=== PATIENT | male | born 1940 | race Caucasian/White ===

== ENCOUNTER 2018-01-23 09:31 | Inpatient (IN) ==
[2018-01-25] MEDS ORDERED: Aluminum/Magnesium/Simethacone Susp 30 ML UDC PO PRN (00:01)
[2018-01-25] MEDS ORDERED: Bisacodyl 10 MG Supp RECTAL PRN (00:01)
[2018-01-25] MEDS ORDERED: Potassium Chlor 20 mEq Premix 20 MEQ/100 ML PIGGYBACK IV.SIG PRN (00:01)
[2018-01-25] MEDS ORDERED: Morphine Inj 4 MG/ML Vial IV.PUSH PRN (00:01)
[2018-01-25] MEDS ORDERED: Menthol 5.8 MG Lozenge BUCCAL PRN (00:01)
[2018-01-25] MEDS ORDERED: Calcium Gluconate Inj 1 GM in Sodium Chlor 0.9% Inj 100 ML IV.SIG PRN (00:01)
[2018-01-25] MEDS ORDERED: Acetaminophen 325 MG Tablet PO PRN (00:01)
[2018-01-25] MEDS ORDERED: Zolpidem Tartrate 5 MG Tablet PO PRN (00:01)
[2018-01-25] MEDS ORDERED: Magnesium Sulfate Inj 2 GM in Sodium Chlor 0.9% Inj 100 ML IV.SIG PRN (00:01)
[2018-01-25] MEDS: Folic Acid 1 MG Tablet PO SCH (09:08)
[2018-01-25] MEDS: Citalopram 20 MG Tablet PO SCH (09:08)
[2018-01-25] MEDS: Loratadine 10 MG Tablet PO SCH (09:09)
[2018-01-25] MEDS: Senna/Docusate Sodium 8.6/50 MG Tablet PO SCH ×2 (09:09→21:46)
[2018-01-25] MEDS: Vitamins A,C,E/Lutein/Minerals Tablet PO SCH (09:09)
[2018-01-25] MEDS: amLODIPine 5 MG Tablet PO SCH (21:46)
--- NOTE | 2018-01-25 22:13 | P.PNNS ---
Subjective Interval history: 01/23/2018 lumbar laminectomy and fusion. 01/25/2018: Initial difficulty with urinary retention, over 300 cc on bladder scan earlier this morning. Patient straight cath and started on Pyridium and Flomax. Now with improved urine output, mild incontinence. Physical Exam Vital signs: Vital Signs 01/25/18 04:00 01/25/18 04:56 01/25/18 08:00 Temperature 97.8 F 98.9 F Pulse Rate 79 70 Respiratory Rate 18 18 20 Blood Pressure 155/71 H 144/66 H Pulse Oximetry 96 94 L 01/25/18 09:09 01/25/18 10:00 01/25/18 12:00 Temperature 98.0 F Pulse Rate 71 Respiratory Rate 18 18 18 Blood Pressure 170/78 H Pulse Oximetry 01/25/18 13:56 01/25/18 15:00 01/25/18 16:00 Temperature 98.3 F Pulse Rate 61 Respiratory Rate 18 16 18 Blood Pressure 114/58 L Pulse Oximetry 93 L 01/25/18 18:56 01/25/18 19:07 01/25/18 20:01 Temperature 97.8 F Pulse Rate 57 L Respiratory Rate 18 18 16 Blood Pressure 144/68 H Pulse Oximetry 96 Intake & Output 01/25/18 01/25/18 01/26/18 06:59 18:59 06:59 Intake Total 360 / 360 480 / 480 Output Total 525 / 525 200 / 200 150 / 150 Balance -165 / -165 280 / 280 -150 / -150 Weight 77.6 kg Intake: Oral 360 / 360 480 / 480 Output: Urine 200 / 200 150 / 150 Urine/Stool Mix 0 / 0 Urine Amount (Catheter) 525 / 525 Straight 525 / 525 Other: # Voids 0 Date of Last Bowel Movement 02/21/18 Narrative: Patient sitting up in bed. Has a urinal that he is using as needed. He is awake and alert Speech is clear Conversant and appropriate Dressing dry and intact lumbar region Sensation intact light touch lower extremities Good lower extremity strength No pelvic-saddle anesthesia. No lower extremity spasticity Plantar responses are neutral No ankle clonus Swanson's response absent bilateral Sensorimotor intact upper extremities - Urinary Catheter Management Straight Cath placed during this visit: no Assessment and Plan - Assessment (1) Lumbar stenosis with neurogenic claudication Code(s): M48.062 - Spinal stenosis, lumbar region with neurogenic claudication Status: Acute - Plan Discussed with patient Discussed with nursing staff Continuing Flomax and Pyridium He does not have any definite signs of cauda equina syndrome. Sensorimotor function otherwise intact in the lower extremities with no saddle anesthesia. Gives a history of prior prostate problems. Continue present medications and observation of bladder function. Replace Sarabia if needed. Discussed with nursing staff. Further bladder scan as needed
[2018-01-26] MEDS: Senna/Docusate Sodium 8.6/50 MG Tablet PO SCH ×2 (09:22→22:02)
[2018-01-26] MEDS: Loratadine 10 MG Tablet PO SCH (09:22)
[2018-01-26] MEDS: Citalopram 20 MG Tablet PO SCH (09:22)
[2018-01-26] MEDS: Vitamins A,C,E/Lutein/Minerals Tablet PO SCH (09:22)
[2018-01-26] MEDS: Folic Acid 1 MG Tablet PO SCH (09:23)
--- NOTE | 2018-01-26 11:10 | P.PNNS ---
Subjective Interval history: Pt complains of incisional back pain and left more than right anterior thigh pain not past the knee. He has been limited in his ambulatory status over the weekend. Pt is interested in rehab placement given his limitations and his would not be able to help much. He denies paresthesias in the LEs. <[email or web address] dia - Last Filed: 01/26/18 10:54> Physical Exam Vital signs: Vital Signs 01/25/18 12:00 01/25/18 13:56 01/25/18 15:00 Temperature 98.0 F Pulse Rate 71 Respiratory Rate 18 18 16 Blood Pressure 170/78 H Pulse Oximetry 01/25/18 16:00 01/25/18 18:56 01/25/18 19:07 Temperature 98.3 F 97.8 F Pulse Rate 61 57 L Respiratory Rate 18 18 18 Blood Pressure 114/58 L 144/68 H Pulse Oximetry 93 L 96 01/25/18 20:01 01/25/18 23:42 01/26/18 00:30 Temperature 98.0 F Pulse Rate 81 Respiratory Rate 16 18 Blood Pressure 188/83 H 148/74 H Pulse Oximetry 93 L 01/26/18 04:38 Temperature 98.7 F Pulse Rate 72 Respiratory Rate 18 Blood Pressure 167/75 H Pulse Oximetry 92 L Intake & Output 01/25/18 01/26/18 01/26/18 18:59 06:59 18:59 Intake Total 480 / 480 1480 / 1480 Output Total 200 / 200 1000 / 1000 Balance 280 / 280 480 / 480 Weight 77.6 kg Intake: IV 1000 / 1000 NS + KCl 20 mEq Inj 1,000 ML @ 1000 / 1000 100 mls/hr IV.CONT .Q10H IVORY Rx #:[id number] Oral 480 / 480 480 / 480 Output: Urine 200 / 200 1000 / 1000 Other: Date of Last Bowel Movement 02/21/18 01/23/18 # Bowel Movements 0 - Constitutional no acute distress - Routine HEENT Exam Head: Present: normocephalic, atraumatic Eye: Present: PERRL. Absent: conjunctival icterus, scleral injection - Routine Respiratory Exam Present: CTA bilaterally. Absent: rales, respiratory distress, rhonchi, wheezes - Routine Cardiovascular Exam Present: RRR, S1, S2. Absent: murmur - Routine Abdominal Exam Present: soft, normoactive bowel sounds. Absent: tenderness, distended, firm - Routine Extremities Exam Absent: cyanosis, edema - Routine Skin Exam Present: intact. Absent: cyanosis, erythema (RN changed bandage this morning and was clean and intact.) - Routine Neurological Exam Present: alert, oriented X3, moving all extremities (with generalized weakness) , normal speech. Absent: sensory deficit, motor deficit - Detailed Neurological Exam: Coma Scale Eye Opening: Spontaneous Verbal Response: Oriented Motor Response: Obey commands [place] Coma Scale Total: 15 - Routine Psychiatric Exam Present: normal thought process, cooperative, good insight, good judgment - Urinary Catheter Management Straight Cath placed during this visit: no <Jf Briones - Last Filed: 01/26/18 10:54> Vital signs: Vital Signs 01/25/18 18:56 01/25/18 19:07 01/25/18 20:01 Temperature 97.8 F Pulse Rate 57 L Respiratory Rate 18 18 16 Blood Pressure 144/68 H Pulse Oximetry 96 01/25/18 23:42 01/26/18 00:30 01/26/18 04:38 Temperature 98.0 F 98.7 F Pulse Rate 81 72 Respiratory Rate 18 18 Blood Pressure 188/83 H 148/74 H 167/75 H Pulse Oximetry 93 L 92 L 01/26/18 08:00 01/26/18 12:00 01/26/18 16:00 Temperature 98.2 F 97.8 F 99.5 F Pulse Rate 61 60 73 Respiratory Rate 18 16 17 Blood Pressure 169/77 H 99/54 L 124/59 L Pulse Oximetry 92 L 94 L 95 Intake & Output 01/25/18 01/26/18 01/26/18 18:59 06:59 18:59 Intake Total 480 / 480 1480 / 1480 Output Total 200 / 200 1000 / 1000 Balance 280 / 280 480 / 480 Weight 77.6 kg Intake: IV 1000 / 1000 NS + KCl 20 mEq Inj 1,000 ML @ 1000 / 1000 100 mls/hr IV.CONT .Q10H IVORY Rx #:[id number] Oral 480 / 480 480 / 480 Output: Urine 200 / 200 1000 / 1000 Other: Date of Last Bowel Movement 02/21/18 01/23/18 01/24/18 # Bowel Movements 0 - Urinary Catheter Management Straight Cath placed during this visit: no <Ricardo Kauffman - Last Filed: 01/26/18 18:44> Assessment and Plan - Assessment (1) Degeneration of lumbar intervertebral disc Code(s): M51.36 - Other intervertebral disc degeneration, lumbar region Status : Acute (2) Lumbar stenosis with neurogenic claudication Code(s): M48.062 - Spinal stenosis, lumbar region with neurogenic claudication Status: Acute - Plan Continue with pain control Physical therapy to increase gain and LE strength Pt will require rehab given his weakness and decreased ambulatory status. Discussed with RN and case management. Discharge Planning: Rehab placement. <Jf Briones - Last Filed: 01/26/18 10:54> - Attending Attestation The exam, history, and the medical decision-making described in the above note were completed with the assistance of the mid-level provider. I reviewed and agree with the findings presented. I attest that I had a [id number] encounter with the patient on the same day, and personally performed and documented my assessment and findings in the medical record. <Ricardo Kauffman - Last Filed: 01/26/18 18:44>
[2018-01-26] MEDS: amLODIPine 5 MG Tablet PO SCH (22:02)
[2018-01-27] MEDS: Senna/Docusate Sodium 8.6/50 MG Tablet PO SCH (08:45)
[2018-01-27] MEDS: Folic Acid 1 MG Tablet PO SCH (08:46)
[2018-01-27] MEDS: Loratadine 10 MG Tablet PO SCH (08:46)
[2018-01-27] MEDS: Vitamins A,C,E/Lutein/Minerals Tablet PO SCH (08:46)
[2018-01-27] MEDS: Citalopram 20 MG Tablet PO SCH (08:46)
--- NOTE | 2018-01-27 09:50 | P.PNNS ---
Subjective Interval history: 01/27/18: Pt awake and alert. Sitting up in chair. He states pain improving. No radiculopathy or paresthesias in LEs. He states he wants to go to a SNF closer to home rather than acute rehab. Discussed with case management who will work on discharge to SNF. I discussed with pts who wants the pt to go to rehab. Pt is having some confusion and feels he will do better in rehab setting. Physical Exam Vital signs: Vital Signs 01/26/18 12:00 01/26/18 16:00 01/26/18 20:00 Temperature 97.8 F 99.5 F 99.4 F Pulse Rate 60 73 64 Respiratory Rate 16 17 20 Blood Pressure 99/54 L 124/59 L 147/66 H Pulse Oximetry 94 L 95 92 L 01/27/18 00:00 01/27/18 03:29 Temperature 99.4 F 98.5 F Pulse Rate 78 80 Respiratory Rate 19 19 Blood Pressure 164/72 H 152/65 H Pulse Oximetry 91 L 93 L Intake & Output 01/26/18 01/27/18 01/27/18 18:59 06:59 18:59 Intake Total 960 / 960 650 / 650 Output Total 1125 / 1125 900 / 900 Balance -165 / -165 -250 / -250 Weight 77.6 kg Intake: Oral 960 / 960 650 / 650 Output: Urine 1125 / 1125 900 / 900 Other: Date of Last Bowel Movement 01/24/18 01/26/18 # Bowel Movements 3 - Constitutional no acute distress, thin, cooperative - Routine HEENT Exam Head: Present: normocephalic, atraumatic Eye: Present: PERRL. Absent: conjunctival icterus - Routine Respiratory Exam Present: CTA bilaterally. Absent: respiratory distress, rhonchi, wheezes - Routine Cardiovascular Exam Present: RRR, S1, S2, murmur - Routine Abdominal Exam Present: soft, normoactive bowel sounds. Absent: tenderness, distended - Routine Skin Exam Present: intact. Absent: cyanosis, erythema - Routine Neurological Exam Present: alert, oriented X3, moving all extremities, normal speech. Absent: sensory deficit, motor deficit - Detailed Neurological Exam: Coma Scale Eye Opening: Spontaneous Verbal Response: Oriented Motor Response: Obey commands [place] Coma Scale Total: 15 - Routine Psychiatric Exam Present: normal affect, normal thought process, good judgment - Urinary Catheter Management Straight Cath placed during this visit: no Assessment and Plan - Assessment (1) Degeneration of lumbar intervertebral disc Code(s): M51.36 - Other intervertebral disc degeneration, lumbar region Status : Acute (2) Lumbar stenosis with neurogenic claudication Code(s): M48.062 - Spinal stenosis, lumbar region with neurogenic claudication Status: Acute - Plan Continue with pain control Physical therapy to increase gain and LE strength Pt will require rehab given his weakness and decreased ambulatory status. Discussed with case management we will discharge to rehab today if bed available. Discharge Planning: Rehab placement.
--- NOTE | 2018-03-01 14:56 | P.DS ---
Date of admission: 01/23/18 09:31 Primary care physician: SKIP FAULKNER Attending physician on discharge: Ricardo Kauffman Anticipated date of discharge: 01/27/18 Brief History from admission: This is a 77-year-old male who presented to us for an evaluation of low back pain and December 2016. He states that the pain occurs at night and keeps him awake. He said if he walks too much he gets twinges in his upper buttock area. He complains of burning in his feet at night with tingling but no numbness. He states if he walks too far his legs get tired. He states he cannot lie on his right side at night secondary to the hip pain. He states that he now has both sides bothering him. He states the pain does extend from the hip to the right lateral thigh but not past the knee usually. He states he gets low back pain if he extends his back. He has been to physical therapy and also had pain management. He has a history of coronary artery disease and has stents in place. He denies any myocardial infarction. He has had cardiac clearance for his surgery. DS: Diagnosis - Discharge Diagnosis (1) Degeneration of lumbar intervertebral disc Status: Acute (2) Lumbar stenosis with neurogenic claudication Status: Acute (3) Spondylolisthesis, lumbar region Status: Acute (4) Facet arthropathy, lumbar Status: Acute (5) Lumbar disc prolapse with compression radiculopathy Status: Acute DS: Summary Hospital Course: Patient underwent a L2, L3, L4, and L5 decompressive laminectomy with microdiscectomy and L2/L3 transforaminal interbody fusion with cage and pedicle screw fixation by Ricardo Kauffman M.D. there was no intraoperative complications. Postoperatively patient was admitted to the medical/surgical floor. Physical therapy was consulted and his activity status was increased. Patient's pain was controlled with medication. Patient had generalized weakness and felt that he would require inpatient rehab after hospitalization. - Time Spent with Patient Total time spent providing and/or coordinating discharge services: Less than 30 minutes Results Procedures completed during hospitalization: L2, L3, L4, and L5 decompressive laminectomy with L2/L3 transforaminal interbody fusion with interbody cage placement and pedicle screw fixation by Ricardo Kauffman MD on 01/23/18. Discharge Plan - Discharge Disposition Patient Disposition: [facility] Rehab Inpatient - Discharge Condition Condition: Stable - Discharge Order Discharge Orders: Discharge Order (Routine); Ordered 01/27/18 Ordered By: Jf Briones - Discharge Details Anticipated Discharge Date: 01/27/18 - Physicians Team Attending Provider: Ricardo Kauffman - Rxs /Orders / Referrals /Forms Prescriptions: Discontinued methotrexate sodium 2.5 mg Tablet See Label Instructions .ROUTE .COMPLEX No Action acetaminophen 325 mg Tablet 650 mg PO Q6HR PRN (Reason: Fever/ Pain 1-10) 30 Days RF: 0 amlodipine [Norvasc] 5 mg Tablet 10 mg PO HS 30 Days Qty: 60 RF: 0 aspirin 81 mg Tablet,Delayed Release (Dr/Ec) 81 mg PO DAILY 30 Days Qty: 30 RF: 0 atorvastatin 20 mg Tablet 20 mg PO EVERY OTHER DAY 30 Days Qty: 15 RF: 0 carvedilol [Coreg] 6.25 mg Tablet 6.25 mg PO DAILY 30 Days Qty: 30 RF: 0 citalopram 20 mg Tablet 20 mg PO DAILY 30 Days Qty: 30 RF: 0 folic acid 1 mg Tablet 1 mg PO DAILY 30 Days Qty: 30 RF: 0 loratadine 10 mg Tablet 10 mg PO DAILY 30 Days Qty: 30 RF: 0 multivitamin with folic acid [Thera] 400 mcg Tablet 1 tab PO DAILY 30 Days Qty: 30 RF: 0 pantoprazole 40 mg Tablet,Delayed Release (Dr/Ec) 40 mg PO DAILY 30 Days Qty: 30 RF: 0 sennosides [Senna Lax] 8.6 mg Tablet 17.2 mg PO Q12H PRN (Reason: Moderate Constipation) 30 Days RF: 0 tamsulosin 0.4 mg Capsule,Extended Release 24hr 0.8 mg PO DAILY 30 Days Qty: 60 RF: 0 vit A,C and [id number] [Ocuvite with Lutein] 1,000 unit-200 mg-60 unit -2 mg Tablet 1 tab PO DAILY 30 Days Qty: 30 RF: 0 Referrals: SKIP FAULKNER [Other] - See Instructions - Discharge Instructions Patient Printed Instructions: Heart Healthy Diet (DC), Laminectomy (DC), Degenerative Disc Disease (DC), Lumbar Brace (DC), Arthritis (GEN) Additional Instructions: followup with Dr. Kauffman as ordered. Wear back brace when out of bed. do not drive or lift, push or pull until approved by physician. DAILY DRESSING CHANGES FOR BACK. KEEP DRY AND INTACT.
== END 2018-01-27 16:33 ==
LOC: N06 09:31
PROVIDERS: ADMIT Neurological Surgery; ATTEND Neurological Surgery